=== PATIENT | female | born 1930 | race Caucasian/White ===

== ENCOUNTER 2018-05-28 16:57 | Emergency (ER) | payer MEDICARE, OTHER ==
[~2018-05-28] VITALS: Ht 162.6 cm; Wt 61.2 kg
[~2018-05-28 16:57] MED LIST: AMYL1CAP56 PO; BENA40TA8 PO; DICY20TA32 PO; DILT120C63 PO; DONE5TAB7 PO; GLYB1TAB3 PO; LEVO137T2 PO; LUBI24CA5 PO; ROSU10TA PO; SITA100T PO; [UNRECOGNIZED DRUG - CODE] PO
[2018-05-28 17:05] VITALS: BP 197/73
[2018-05-28] MEDS ORDERED: LIDOCAINE 1%-EPI 1:100,000 20 ML VIAL ONE (17:16)
[2018-05-28] MEDS ORDERED: LIDOCAINE 1%-EPI 1:100,000 20 ML VIAL TP ONE (17:30)
--- NOTE | 2018-05-28 18:42 | NUR ---
Patient discharged to home in stable condition. Written and verbal after care instructions given. Patient's granddaughter verbalizes understanding of instruction. pt left via [place] to the granddaughter's car. vss.
== END 2018-05-28 18:40 | disposition home or self-care (01) ==
LOC: ER 17:00
DX: S01.111A Laceration without foreign body of right eyelid and periocular area, initial encounter (principal); I10 Essential (primary) hypertension; E11.9 Type 2 diabetes mellitus without complications; R40.4 Transient alteration of awareness; Z90.49 Acquired absence of other specified parts of digestive tract; Z98.890 Other specified postprocedural states; W01.198A Fall on same level from slipping, tripping and stumbling with subsequent striking against other object, initial encounter; Y93.89 Activity, other specified; Y92.091 Bathroom in other non-institutional residence as the place of occurrence of the external cause; Y99.8 Other external cause status
CPT/HCPCS: 12011; 70450; 99284; A4606; A6402; J3490; Z7610